=== PATIENT | female | born 1980 | race Caucasian/White ===

== ENCOUNTER 2016-05-18 14:08 | Inpatient (IN) | payer OTHER ==
[2016-05-26] MEDS ORDERED: IV START KIT ONE (07:34)
[2016-05-26] MEDS ORDERED: LIDOCAINE Viscous 2% 15 ML UDCUP ONE (07:35)
[2016-05-26] MEDS ORDERED: LACTATED RINGERS 1,000 ML ONE (07:35)
[2016-05-26] MEDS ORDERED: PUMP TUBING ONE (07:35)
[2016-05-26] MEDS ORDERED: MINERAL OIL 25 ML BOT ONE (07:35)
[2016-05-26] MEDS ORDERED: LIDOCAINE 1% (PRES FREE) 30 ML VIAL ONE (07:35)
[2016-05-26] MEDS ORDERED: OXYTOCIN 10 UNITS/ML VIAL ONE (07:35)
[2016-05-26] MEDS ORDERED: OXYTOCIN IN LR 500 ML IV ONE ×2 (07:36→08:48)
[2016-05-26] MEDS ORDERED: SODIUM CHLORIDE 0.9% FLUSH 10 ML ONE (08:00)
[2016-05-26] MEDS ORDERED: MISOPROSTOL 25 MCG TABLET VG ONE (08:02)
[2016-05-26] MEDS ORDERED: LACTATED RINGERS 1,000 ML IV PRN (08:48)
--- NOTE | 2016-05-26 09:12 | PCMAN ---
OB Admission Note - History : 7 Term: 5 : 0 Abortions (S&E): 1 Livin EDC:: 05/18/16 Gestational Age (weeks): 41 Days (#/7): 1 Admit Cervical Dilation:: 2 Admit Cervical Effacement (%):: 50 (-4 station) Admit Presentaton:: vertex, confirmed by US Membrane Status: Intact Contractions: Yes Contraction Frequency:: q 4-5, very mild Heart Rate:: 135 (moderate variability, no decels, pos accels) Status:: Cat 1 EFW:: 9.25lbs Summary of Course:: HPI: Fabi is a 35 yo G7pP5 at 41w1d who presents for elective IOL. RIO yesterday 22.5cm. Plan made yesterday for IOL as Fabi is concerned that this is her largest baby and she has never gone past 41 weeks before. Her largest infant weighed 9lbs 4oz at . No history of shoulder dystocia. Course: This is an unplanned, welcome with her partner Arturo. She initiated care with the midwives at 9 weeks for a total of 15 visits. REANNA of 05/18/16 confirmed by 10 week US. Pre- weight 217, pre-preg BMI 33. TWG this 43 lbs. This was an uncomplicated . Patient will be over 35 at time of delivery. Fabi and Arturo declined genetic testing. She plans to breastfeed. 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 No Hx of shoulder dystocia or PPH. Lat Pap 10/20/15 WNL, HPV neg, no Hx abnormals Med Hx: Hypothyroidism, currently taking 150mcg levothyroxine daily, TSH levels WNL all trimesters Hx depression after third delivery Hx UTIs in , none this Hx anemia in , none documented this Surg Hx: No surgeries Bad experience with first epidural, has had epidurals since without complication Genetic Hx: Patient, 2 sisters and one daughter have hip dysplasia AMA Current Meds: 150mcg levothyroxine daily PNV Allergies: Latex, eggs, sulfa drugs Social Hx: Lives with Arturo and five children. Declined WIC at onset, occasionally utilized food stamps depending on 's work schedule. - Labs Blood Type: O (+) positive Hct/Hgb:: 13.5/40.5 Rubella Status: Immune GBS Status: Positive Abnormal Labs: None Other Labs:: Last Pap 10/20/15 WNL, HPV negative TSH WNL all trimesters - Review of Systems Complete ROS is negative except for mild abdominal cramping described as contractions. - Physical Exam Psych/Mental Status: Mood/Affect Appropriate, Judgment/Insight Intact Neurological: Grossly Intact, Alert, Oriented x 4 HEENT: Atraumatic Lungs: Clear to Auscultation Bilaterally Cardiovascular: Regular Rate and Rhythm, Normal S1, Normal S2 Abdomen: Other (EFW 9.25lbs, Leopolds ROT) Genitourinary: Normal Female Genitalia, Other Rectal Exam: Deferred Extremities: Full ROM Skin: Normal Color - Problems (1) Advanced maternal age in multigravida Qualifiers: Trimester: third trimester Qualifier Code: (O09.523) Supervision of elderly multigravida, third trimester Status: Acute Code: O09.529 (2) Elective induction of labor planned Status: Acute Code: [id number] Assessment/Plan: A: 35 yo at 41w1d elective IOL, not in labor EFW 9.25lbs, no GDM Membranes Intact GBS pos Hypothyroid Fetus Cat 1 Obesity Brady Score 3 P: Discussed IOL options with patient. Has a Hx of using miso and Pit for her inductions with success. Given Brady Score of 3 will initiate cervical ripening with 25mcg miso and proceed to Pitocin when indicated. IV access and CBC Initiate PCN prophylaxis with onset of active labor or ROM CEFM May have regular diet one hour after administration of miso if not in active labor. Continue with daily levothyroxine Anticipate active labor and progression to (3) Hypothyroid Status: Chronic Code: E03.9
[2016-05-26 09:36] VITALS: BMI 38.0
[2016-05-26 10:00] LABS: HEMATOCRIT 37.1 % (37.0-47.0); HEMOGLOBIN 12.3 gm/l (12.0-16.0); MEAN CELL VOLUME 91.6 fl (81.0-99.0); MEAN CORPUSCULAR HEMOGLOBIN 30.4 pg (27.0-31.0); MEAN CORPUSCULAR HGB CONC 33.2 g/dl (33.0-37.0); RED CELL DISTRIBUTION WIDTH 12.6 % (11.5-14.5)
[2016-05-26] MEDS ORDERED: MISOPROSTOL 25 MCG TABLET SL ONE ×2 (13:58→22:00)
--- NOTE | 2016-05-26 14:11 | PDOC36 ---
Provider Note Subject: Labor Progress Note Note: S: Fabi feels that contractions increase in frequency and intensity when she is upright and walking and slow down when she lays down. She must pay more attention to them now than before, but can stil talk through them. O: VS BP 130/59 T 98.6F P 91 SVE 2/50%/-4/softer/posterior BSL 135 moderate variability, accels present, no decels Ctx q 2-3 mins when walking, q 4-6 when reclining, lasting 60-80 sec, mild to palpation Intact membranes A: 35 yo at 41w1d elective IOL, not in labor EFW 9.25lbs, no GDM Membranes Intact GBS pos Hypothyroid Fetus Cat 1 Obesity Brady Score 4 P: Discussed continuing IOL with patient and that progress like this is very common. Enouraged optimal positioning with side-lying release x10 mins per side. SL 50mcg miso Initiate PCN prophylaxis with onset of active labor or ROM CEFM Walking, ball, position changes to facilitate labor progression. Patient would like epidural for pain management when active labor established. Anticipate active labor and progression to
[2016-05-26] MEDS ORDERED: LEVOTHYROXINE SODIUM 150 MCG TABLET PO SCH (16:00)
--- NOTE | 2016-05-26 16:39 | PDOC36 ---
Provider Note Subject: Labor Progress Note Note: S: Fabi is feeling her contractions more intensely. She says that if she were at home, she's be planning to come to the hospital with contractions like this. O: VS BP 130/59 P91 R 16 T 98.7F SVE deferred s/p miso x2 doses, last dose 50mcg at 1410 BSL 130 pos accels, neg decels, moderate variability Movement frequently ausculated with EFM and visualized on maternal abdomen, making fetus reassurringly difficult to trace ctx q 2-4 mins, lasting 60-90 sec with breaks of 40-130 sec, palpating mild to moderate in strength A: 35 yo at 41w1d elective IOL, latent labor progressing toward active EFW 9.25lbs, no GDM Membranes Intact GBS pos Hypothyroid Fetus Cat 1 Obesity Coping well P: Discussed that she is having a good looking labor pattern. Initiate PCN prophylaxis with onset of active labor or ROM CEFM Pt to walk, change positions, use ball for labor management. Will request epidural when no longer able to cope. Anticipate active labor and progression to Deferring SVE until clinically indicated or 4 hours after last dose of miso.
--- NOTE | 2016-05-26 19:36 | PDOC36 ---
Provider Note Subject: labor progress note Note: S: Fabi is sitting on the ball and feeling her contractions more intensely, though ball sitting is very helpful. She would like to move induction along. Still considering epidural. O: VS BP 145/79 P97 T 35.7 SVE: 3/50/-3, mid-position, soft, Bishops 6 s/p miso x2 doses, last dose 50mcg at 1410 BSL 135 pos accels, neg decels, moderate variability *tracing continues to be intermittent due to frequent movement that is audible by cEFM and visable on maternal abdomen ctx q 2-3 mins, lasting 60-90 sec, palpating mild to moderate in strength A: 35 yo at 41w1d elective IOL, latent labor EFW 9.25lbs, no GDM Membranes Intact GBS pos Hypothyroid Fetus Cat 1 Obesity Coping well P: Reviewed cervical change and progress made, limitations of monitoring to movement, cervical ripening options for repeat miso SL vs low dose pitocin. Decided to repeat miso SL at this time. Will repeat 50mcg SL. Initiate PCN prophylaxis with onset of active labor or ROM CEFM Pt to walk, change positions, use ball for labor management as able with cEFM. Will request epidural when no longer able to cope or with AROM/SROM bc she anticipates increase in labor pain at that time. Anticipate active labor and progression to .
[2016-05-26] MEDS ORDERED: OXYTOCIN IN LR 500 ML IV PRN (23:14)
--- NOTE | 2016-05-26 23:47 | PDOC36 ---
Provider Note Subject: labor progress note Note: S: Fabi has been up moving around. For most of the last 1.5hrs her ctx were increasingly painful and maintained at q 1-3min. Due to painful ctx pattern, miso was held. Since active cervical ripening was no longer being conducted and previous FHT Cat. I, patient was appropriate for IA. In the 20min prior to evaluation, contractions spaced and became less painful. O: VS BP 141/92, T36.0, R:18, P:100 SVE: 3/50/-3, mid-position, soft, Bishops 6, s/p miso x2 doses, last dose 50mcg at 1410 cEFM: 120 pos accels, neg decels, moderate variability *tracing continues to be intermittent due to frequent movement that is audible by cEFM and visable on maternal abdomen TOCO: ctx q 3-6 mins, lasting 60-90 sec, palpating mild to moderate in strength A: 35 yo at 41w1d elective IOL, latent labor EFW 9.25lbs, no GDM Membranes Intact GBS pos Hypothyroid Fetus Cat 1 Obesity Coping well P: Discussed lack of cervical change. Recommended starting pitocin, with a slow /low dose protocol for continued cervical ripening. Initiate PCN prophylaxis with onset of active labor or ROM. Elevated BP noted. Likely due to recent position change to standing position and contractions. Will continue to monitor and will consider PET labs as needed. CEFM Pt to walk, change positions, use ball for labor management as able with cEFM. Will request epidural when no longer able to cope or with AROM/SROM bc she anticipates increase in labor pain at that time. Anticipate active labor and progression to .
[2016-05-27] MEDS ORDERED: PUMP TUBING ONE (03:41)
[2016-05-27] MEDS: LACTATED RINGERS 1,000 ML IV SCH ×2 (03:48→08:13)
[2016-05-27] MEDS ORDERED: LEVOTHYROXINE SODIUM 150 MCG TABLET PO SCH (07:30)
[2016-05-27] MEDS ORDERED: FENTANYL/ROPIVACAINE EPIDURAL 250 ML EP ONE (07:30)
[2016-05-27] MEDS ORDERED: EPIDURAL PUMP SET ONE (07:30)
[2016-05-27] MEDS ORDERED: LEVOTHYROXINE SODIUM 150 MCG TABLET PO ONE (07:58)
[2016-05-27] MEDS ORDERED: LIDOCAINE 2% (PRES FREE) 5 ML VIAL ONE (08:48)
[2016-05-27] MEDS ORDERED: FENTANYL 100 MCG/2 ML VIAL ONE (08:48)
[2016-05-27] MEDS ORDERED: FENTANYL/ROPIVACAINE EPIDURAL 250 ML EP SCH (09:00)
--- NOTE | 2016-05-27 09:32 | PDOC36 ---
Provider Note Subject: labor progress note Note: S: Fabi has rested. Pitocin delayed due to CNM tied up in OR and FHT Cat. I and II for change in baseline 115. MOderate variability and accelerations maintained throughout. Overall coping well, but starting to feel fatigued. O: VS BP 137/75 SVE: 350/-3, head feels more applied to cervix and is more difficult to float in pelvis than previous exam. s/p miso x2 doses (last dose 50mcg at 1410) cEFM: 115 pos accels, occasional variable decelerations with quick return to baseline with >50% ctx, moderate variability, occasional periods of minimal variability TOCO: ctx q 3-8 mins, periods of coupling, lasting 60-90 sec, palpating mild to moderate in strength A: 35 yo at 41w1d elective IOL, latent labor EFW 9.25lbs, no GDM Membranes Intact GBS pos Hypothyroid Fetus Cat I and II P: With appropriate staffing, will initiate pitocin IOL. Will re-check and reconsider AROM at next exam in 4-6hrs. Continue with plan for cEFM, initiating PCN prophylaxis with active labor or ROM , and maternal position changes. Anticipate active labor and progression to .
--- NOTE | 2016-05-27 09:52 | PDOC36 ---
Provider Note Subject: labor progress note Note: S: Fabi is laboring in the tub, moaning with contractions. O: VS BP 137/75 SVE: 4/50/-3, head feels more applied to cervix but still high s/p miso x2 doses (last dose 50mcg at 1410), Pitocin @ 2mu cEFM: baseline 115, moderate variability, accels present, decels absent TOCO: ctx q 3-4 mins, periods of coupling, lasting 60-90 sec, palpating mild to moderate in strength A: 35 yo at 41w2d elective IOL, latent labor EFW 9.25lbs, no GDM Membranes Intact GBS pos Hypothyroid Fetus Cat I P: Order epidural, continue with pitocin induction, evaluate VE after epidural Continue with plan for cEFM, initiating PCN prophylaxis with active labor or ROM , and maternal position changes. Anticipate active labor and progression to .
[2016-05-27] MEDS ORDERED: LACTATED RINGERS 1,000 ML IV SCH ×2 (09:59→10:30)
[2016-05-27] MEDS ORDERED: ONDANSETRON 4 MG/2ML 2 ML VIAL IV PRN (09:59)
[2016-05-27] MEDS ORDERED: NALBUPHINE HCL 20 MG/ML AMP IV PRN (09:59)
[2016-05-27] MEDS ORDERED: LACTATED RINGERS 500 ML IV PRN (09:59)
[2016-05-27] MEDS ORDERED: SODIUM CHLORIDE 0.9% 500 ML IV PRN (09:59)
[2016-05-27] MEDS ORDERED: METOCLOPRAMIDE HCL 5 MG/ML 2ML VIAL IV PRN (09:59)
[2016-05-27] MEDS ORDERED: NALOXONE HCL 0.4 MG/ML VIAL IV PRN (09:59)
[2016-05-27] MEDS ORDERED: EPHEDRINE SULFATE 50 MG/ML 1ML VIAL IV PRN (09:59)
[2016-05-27] MEDS ORDERED: DIPHENHYDRAMINE HCL 50 MG/1 ML VIAL IV PRN (09:59)
[2016-05-27] MEDS ORDERED: NS 0.9% (MINI-BAG PLUS) 100 ML IV ONE (10:38)
[2016-05-27] MEDS ORDERED: PENICILLIN G POTASSIUM 5 MMU VIAL ONE (10:38)
[2016-05-27] MEDS ORDERED: PENICILLIN G POTASSIUM 5 MMU in NS 0.9% (MINI-BAG PLUS) 100 ML IV ONE (10:45)
--- NOTE | 2016-05-27 13:25 | PDOC36 ---
Provider Note Note: S: Called to the room urgently due to significant pressure and urge to push. Comfortable with epidural. O: SVE: /-2, BBOW, active fetus, initially applied to cervix but ballotable with exam. Pitocin @ 2mu cEFM: baseline 115, moderate variability, accels present, decels absent TOCO: ctx q 3-5 mins, periods of coupling, lasting 60-110 sec, moderate A: 35 yo at 41w2d Active EFW 9.25lbs, no GDM Membranes Intact, GBS pos, PCN x 1 (2.5hrs ago) FHT Cat I P: Given baby's station, ballotable, and large amount of fluid, I do not feel comfortable with AROM but do believe this would assist with labor progress. Consulted Dr. Zarate for evaluation and AROM if he feels comfortable given station. Plan made for eval/AROM if possible in 1-1.5hrs when closer to adequate GBS prophylaxis. Anticipate .
[2016-05-27] MEDS ORDERED: PENICILLIN G 3 MIL UNIT PREMIX 50 ML IV ONE (14:23)
[2016-05-27] MEDS ORDERED: PENICILLIN G 3 MIL UNIT PREMIX 3 MMU in Premix (D5W) 50 ml 1 EACH IV SCH (14:45)
--- NOTE | 2016-05-27 14:58 | PDOC36 ---
Provider Note Subject: labor progress note Note: S: Still comfortable with epidural O: SVE: 8/100/-2, BBOW, Pitocin @ 2mu cEFM: baseline 115, moderate variability, accels present, decels absent TOCO: ctx q 3-5 mins, periods of coupling, lasting 60-110 sec, moderate A: 35 yo at 41w2d Active EFW 9.25lbs, no GDM Membranes AROM, GBS pos, PCN x 2 FHT Cat I P: With exam, baby head was well applied, AROM without complication. Anticipate .
[2016-05-27] MEDS ORDERED: MISOPROSTOL 200 MCG TABLET ONE (16:40)
--- NOTE | 2016-05-27 17:34 | PCMDEL ---
Delivery Note - Labor 1st stage (hr/min):: 7h15m 2nd stage (hr/min):: 0h18m 3rd stage (hr/min):: 8m Total (hr/min):: 7h41m Pushed (hr/min):: 0h18m - Delivery Delivery (Date): 05/27/16 Delivery (Time): 16:33 Gender: Male Presentation: Cephalic Position: OA Umbilical Cord: 3 Vessel Delayed Cord Clamping:: > 3 min 1 Minute Total: 9 5 Minute Total: 9 Placenta:: Spontaneous, intact, yasmany, 3vc EBL:: 400ml Perineum:: 1st degree perineal laceration repaired Suture:: 3-[address] Anesthesia/Meds:: epidural Length ROM:: 1h48m Comments:: Fabi made steady progress with oxytocin induction of labor. At 6cm she requested and received epidural anesthesia. At 8cms she requested AROM for augmentation, which was completed for clear fluid. Throughout labor, FHT was Cat. I or II with baseline in 115s and occasional variables with good return, and consistent moderate variability. At complete dilation, she pushed effectively to achieve of vigorous male with copious amounts of amniotic fluid (measured in drape 1500ml, minimal blood loss). Slow delivery of the head (OA to ANNITA) was followed by quick easy delivery of both shoulders and body. Immediately placed skin to skin for bonding and drying. Apgars 9/9. Delayed cord clamping until cessation of pulsing, cut by FOB. AMTSL with IV pitocin. Brisk bleeding followed by spontaneous delivery of intact placenta, yasmany, 3vc. Fundus firm midline u/-1. EBL 350ml. Due to risk factors (now , near poly) and volume of current blood loss, lower uterine segment swept for small clots and minimal bleeding. Hemostasis achieved total EBL 400ml. Upon inspection 1st degree perineal laceration noted and repaired under epidural anesthesia to approximation. Mom and baby stable, baby to breast in <30min.
[2016-05-27] MEDS ORDERED: ACETAMINOPHEN 325 MG TABLET PO PRN (18:18)
[2016-05-27] MEDS ORDERED: LANOLIN 50 APPLIC/7G TUBE TP PRN (18:18)
[2016-05-27] MEDS ORDERED: DOCUSATE SODIUM 100 MG CAPSULE PO PRN (18:18)
[2016-05-27] MEDS ORDERED: BENZOCAINE/MENTHOL 60 APPLIC/BOT TP PRN (18:18)
[2016-05-27] MEDS: IBUPROFEN 800 MG TABLET PO SCH (18:41)
[2016-05-28] MEDS: HYDROCODONE/ACETAMINOPHEN 5/325MG TABLET PO PRN ×2 (00:01→07:04)
[2016-05-28] MEDS: IBUPROFEN 800 MG TABLET PO SCH (01:38)
[2016-05-28 06:48] LABS: HEMATOCRIT 28.9 % (37.0-47.0); HEMOGLOBIN 9.7 gm/l (12.0-16.0)
[2016-05-28] MEDS ORDERED: LEVOTHYROXINE SODIUM 150 MCG TABLET PO SCH (07:30)
[2016-05-28] MEDS ORDERED: LACTATED RINGERS 1,000 ML ONE (09:07)
[2016-05-28] MEDS ORDERED: EPINEPHRINE 1 MG/ML 1ML AMP ONE (10:07)
[2016-05-28] MEDS ORDERED: LIDOCAINE 2% (PRES FREE) 5 ML VIAL ONE (10:07)
--- NOTE | 2016-05-28 10:12 | PDOC36 ---
Provider Note Subject: Pre-op Note Note: Pt and her Arturo are very definite that they have completed their family , unless they adopt. She wishes to proceed with BTL. Understands permanency as well as possibility of failure/ectopic. Risks/complications of surgery discussed. Consent signed. Exam show a well contracted deep uterus Subumbilical incision discussed Imp: Undesired fertility Plan: BTL
[2016-05-28] MEDS ORDERED: FENTANYL 100 MCG/2 ML VIAL ONE (10:13)
[2016-05-28] MEDS ORDERED: MIDAZOLAM HCL 5 MG/5 ML VIAL ONE ×2 (10:24→10:40)
[2016-05-28] MEDS ORDERED: MORPHINE SULFATE 10 MG/ML SYRINGE ONE ×2 (10:48→11:28)
[2016-05-28] MEDS ORDERED: BUPIVACAINE 0.5% (PRES FREE) 30 ML VIAL ONE (11:12)
[2016-05-28] MEDS ORDERED: METOCLOPRAMIDE HCL 5 MG/ML 2ML VIAL ONE (11:12)
[2016-05-28] MEDS ORDERED: ROPIVACAINE 0.5% 30 ML VIAL ONE (11:12)
[2016-05-28] MEDS ORDERED: PROPOFOL 40 ML IV ONE (11:12)
[2016-05-28] MEDS ORDERED: FAMOTIDINE 10 MG/ML 2ML VIAL ONE (11:12)
[2016-05-28] MEDS ORDERED: LACTATED RINGERS 1,000 ML IV SCH (11:15)
--- NOTE | 2016-05-28 11:58 | PCMBPN ---
Brief Post Op Note: Date of Procedure: 05/28/16 Start Time: 1051 Preoperative Diagnosis: 1. Undesired fertility Postoperative Diagnosis: 1. Same Procedure: Ppartum bilateral tubal ligation Surgeon: Shilpa Shepherd Assist:Mario Anesthesia: Valeria Patrick CRNA Findings: Thick adipose layer, edema, omentum and bowel overlying the retroverted uterus which was deep in pelvis. Condition: Good Complications: none IV Fluids: 2200 mLs of LR Urine Output: 0 mLs Estimated Blood Loss: 25 mLs Tourniquet Time: N/A Specimens: bilateral segments of tubes Implants: N/A Drains: N/A
[2016-05-28] MEDS ORDERED: MORPHINE SULFATE 4 MG/ML SYRINGE ONE (12:07)
[2016-05-28] MEDS ORDERED: MORPHINE SULFATE 4 MG/ML SYRINGE IV PRN (12:15)
[2016-05-28] MEDS ORDERED: LANOLIN 50 APPLIC/7G TUBE TP PRN (12:29)
[2016-05-28] MEDS ORDERED: DIPHTH,PERTUSS(ACELL),TET VAC 0.5 ML VIAL IM V ONE (12:29)
[2016-05-28] MEDS ORDERED: BENZOCAINE/MENTHOL 60 APPLIC/BOT TP PRN (12:29)
[2016-05-28] MEDS ORDERED: MAGNESIUM HYDROXIDE 30 ML UDCUP PO PRN (12:29)
[2016-05-28] MEDS ORDERED: OXYCODONE HCL 5 MG TABLET PO PRN (12:29)
[2016-05-28] MEDS ORDERED: ACETAMINOPHEN 325 MG TABLET PO PRN (12:29)
[2016-05-28] MEDS ORDERED: MEASLES,MUMPS&RUBELLA VACCINE 0.5 ML VIAL SUB-Q V ONE (12:29)
[2016-05-28] MEDS ORDERED: SENNOSIDES 8.6 MG TABLET PO PRN (12:29)
[2016-05-28] MEDS ORDERED: DOCUSATE SODIUM 100 MG CAPSULE PO PRN (12:29)
[2016-05-28] MEDS ORDERED: LEVOTHYROXINE SODIUM 150 MCG TABLET PO ONE (13:30)
[2016-05-28] MEDS: OXYCODONE/ACETAMINOPHEN 5/325 MG TABLET PO PRN ×3 (13:35→21:34)
[2016-05-28] MEDS: IBUPROFEN 800 MG TABLET PO PRN ×2 (16:22→23:02)
--- NOTE | 2016-05-28 21:06 | PDOC36 ---
Provider Note Subject: Post-op note Note: S: pt states pain is worse than she expected. With ibuprof and percocet she is doing OK. We discussed pain management and weaning off percocet after discharge. Pt hoping to go home tomorrow if baby's bili is OK. Exam: Abd sensitive. Dressing clean and dry. Imp: Stable postop BTL. Surgery reviewed with pt and her . It was a bit difficult due to body habitus, but I expect a normal recovery. Plan: Probable dc in am.
[2016-05-28] MEDS ORDERED: PROPOFOL 20 ML IV ONE (22:18)
[2016-05-29] MEDS: OXYCODONE/ACETAMINOPHEN 5/325 MG TABLET PO PRN ×3 (01:30→09:37)
[2016-05-29] MEDS: IBUPROFEN 800 MG TABLET PO PRN ×2 (05:14→11:08)
[2016-05-29 06:02] LABS: HEMATOCRIT 29.8 % (37.0-47.0); HEMOGLOBIN 9.6 gm/l (12.0-16.0); MEAN CELL VOLUME 94.3 fl (81.0-99.0); MEAN CORPUSCULAR HEMOGLOBIN 30.4 pg (27.0-31.0); MEAN CORPUSCULAR HGB CONC 32.2 g/dl (33.0-37.0); RED CELL DISTRIBUTION WIDTH 12.8 % (11.5-14.5)
[2016-05-29 08:06] VITALS: BP 124/68
--- NOTE | 2016-05-29 14:23 | OP ---
KARTHIK SOLIMAN [id number] DATE OF : 1980 DATE OF SURGERY: 05/28/2016 PREPROCEDURE DIAGNOSIS: Undesired fertility after normal vaginal . POSTPROCEDURE DIAGNOSIS: Undesired fertility after normal vaginal . PROCEDURE PERFORMED: bilateral tubal ligation. SURGEONS: Shilpa Shepherd MD [employer] SOFTWARE DEVELOPER: Mario. CANNERY WORKER: Valeria Patrick CRNA ANESTHESIA: Epidural anesthesia was used with IV sedation. ESTIMATED BLOOD LOSS: 25 mL. DESCRIPTION OF PROCEDURE: On the morning of 05/28/2016 after the usual preoperative preparations were completed in the patient's labor and delivery room, Fabi was brought to the operating room at the [facility]. She was transferred to the operating room table, and made comfortable in a supine position. She had already been given a bolus of medication through her epidural catheter from the delivery. Once this had taken effect, the abdomen was prepped and draped for a subumbilical incision. A time out was then performed verifying proper patient, procedure, position, personnel, and equipment. The patient was then tested and still had some very mild sensation under the umbilicus. This area was therefore injected with 0.5% bupivacaine, and this was allowed to take effect. She was again tested and had no reaction. A transverse incision was therefore made just below the umbilicus with a fresh knife. This was carried down to through the fairly thick adipose layer that also was quite edematous. The fascia was then incised the length of the incision. The peritoneum was identified and opened transversely. There were no intraperitoneal adhesions. Unfortunately, there was large omentum and loops of bowel below the incision. The fundus of the uterus itself was already deep in the pelvis and retroverted. The patient was therefore placed in a Trendelenburg position and a small Escobar retractor was placed through the incision. I was able to gently manipulate the fundus of the uterus upward and towards the left side. We tried several different things to provide some visualization of the coronal portion of the uterus, but this was quite difficult. Finally, with the patient rolled slightly to her left side, and with a sponge stick holding back some of the omentum, I was able to grasp the fallopian tube. We brought this upward toward the incision, and I was able to visualize the fallopian tube in its entire length. It was edematous, but otherwise completely normal. The fimbria appeared normal. The isthmic part of the tube was elected. Mesentery was opened, two Florecita clamps were placed and this segment was excised. Both cut edges of the fallopian tube were doubly tied with some 3-0 Chromic tie, and then these were also cauterized. There was no bleeding from the right side. The tube was therefore gentle placed back within the perineal cavity, and the uterus was then rotated toward the right. The patient was tilted partly towards the right and several attempts were again made to move bowel and omentum aware from the top of the uterus. Finally, I was able to visualize the adnexa enough to grasp the fallopian tube with a Whittier clamp. The right fallopian tube was also visualized in its entire length. A segment in the isthmic portion was selected and the mesentery was opened. Two Florecita clamps were placed and this was excised. Doubly ties were placed, and the lumen of the tube was cauterized. I also injected this side with just a small amount of bupivacaine. Hemostasis was verified. Patient was taken out of the Trendelenburg position. The Escobar retractor was removed. The subumbilical incision was then closed in layers as follows: Peritoneum and first fascial layer were closed with 0-Vicryl in a running suture. The thicker fascial layer was then closed with 0-Vicryl. Skin was reapproximated with some 4-0 Monocryl suture. Steri-Strips were placed followed by a bandage. The patient was then gently awoken from the anesthesia. She was then transferred to her bed and taken to the recovery room in stable condition. LEONOR/libby
--- NOTE | 2016-06-01 09:29 | SURGPATH ---
[facility] [address] [place] [id number] Patient Name: KARTHIK SOLIMAN MR#: [id number] : 1980 Gender: F Specimen #: [id number] Collected: 05/28/2016 Received: 05/31/2016 Reported: 06/01/2016 Submitting Phys: MICHELLE PRO Copy To Phys: [facility] Clinical History / Pre-Operative Diagnosis: NONE PROVIDED Specimen Source / Surgical Procedure Performed: SEGMENT OF RIGHT FALLOPIAN TUBE (WITH SUTURE), SEGMENT OF LEFT FALLOPIAN TUBE- BILATERAL TUBAL LIGATION Interpretation: FALLOPIAN TUBES, RIGHT AND LEFT, BILATERAL TUBAL LIGATION: - NORMAL FALLOPIAN TUBES SEEN IN COMPLETE CROSS SECTION Electronically Signed Out Desiree Muniz M.D. Gross Description: The specimen is received in a formalin filled container labeled with the patient's name and "right and left fallopian tube segment". Two cylindrical segments of hancock tissue are 1.0 x 0.5 cm and 1.3 x 0.5 cm. The longer segment has an attached suture and is inked black. A statement services representative cross-section of each is submitted in one cassette. Emil Nazario Microscopic Description: Both fallopian tubes are histologically unremarkable and seen in complete cross section. 1: [id number] Z30.2
--- NOTE | 2016-06-03 09:56 | PDOC39B ---
Hospital Course: ADMIT DATE: 05/26/16 DISCHARGE DATE: 05/29/16 ADMISSION DIAGNOSES: IOL for post-dates PROCEDURES: HISTORY OF PRESENT ILLNESS: 35 year old G7 T5 L5 at 41 weeks 2 days presenting for IOL for postdates. Had uncomplicated followed by an uncomplicated BTL. Pain has been well-controlled on perococet. HOSPITAL COURSE: The patient is doing well overall. By day of discharge the patient is ambulating, eating, voiding, and passing flatus without difficulty. Pain is controlled with percoset and lochia is appropriate. She is exclusively. She requests an Rx of Perocset for pain relief and for colace at home. She has good family support. - Physical Exam Vital Signs: Temp Pulse Resp BP Pulse Ox 99.0 F 85 18 124/68 96 05/29/16 07:34 05/29/16 07:34 05/29/16 07:34 05/29/16 07:34 05/28/16 12:33 General: Afebrile Psych/Mental Status: Mood/Affect Appropriate, Judgment/Insight Intact, Bonding Well Lungs: Clear to Auscultation Bilaterally Cardiovascular: Regular Rate and Rhythm Breast: Soft, Skin intact, Nipples Intact Fundus: Firm, Midline, Below Umbilicus Genitourinary: Normal Female Genitalia Lochia: Light Extremities: Full ROM Skin: Normal Color - Discharge Diagnosis (1) care and examination Status: Acute Assessment/Plan: A: 35yo Day 2 S/p BTL yesterday Lochia stable exclusively Anemic P: : encourage follow-up with [facility] PRN, lanolin PRN, on- demand feedings, [id number] Anemia: encouraged to continue taking PO iron, rest, increase hydration. Reviewed warning signs. BTL pain: seen and examined post-BTL by Jh Shepherd, who recommends #60 5-325 Percoset for pain relief. Rxs for Percoset, ibuprofen and Colace given. Encouraged pt to schedule BTL follow-up visit with Jh Shepherd in 7-10 days. Reviewed s/s of infection, when to call. Education: handout given and reviewed. Warning signs discussed: mood disorder vs baby blues, bleeding, infection, DVT/PT Follow-up: 06/10/16 at 1:40pm in [place] for 2-week visit, or PRN. - Discharge Plan Condition: Stable Instruction Forms: Vaginal Discharge Instructions Additional Instructions: Congratulations! Please call the clinic to schedule a follow-up appointment with Dr. Shepherd for later this week. You have a follow-up visit with the midwives scheduled for 06/10/16 at 1:40pm in [place]. If you have any questions or concerns, or need to reschedule, please call the clinic at [phone] ([place]) or [phone] ([place]). Prescriptions: Docusate Sodium [COLACE 100 MG CAPSULE (SHF)] 100 mg PO BID PRN #30 cap PRN Reason: Constipation Ibuprofen [Motrin] 1 tab PO Q6H PRN #60 tablet PRN Reason: Pain Oxycodone HCl/Acetaminophen [PERCOCET 5/325 MG TABLET (SHF)] 1 tab PO Q4-6H PRN #60 tab PRN Reason: Pain
== END 2016-05-29 12:40 | disposition home or self-care (01) | DRG 767 ==
LOC: EDSTATUS 14:22 → FBC 05-26 07:00
PROVIDERS: ADMIT Advanced Practice Midwife; ATTEND Advanced Practice Midwife
PROC: 3E033VJ Introduction of Other Hormone into Peripheral Vein, Percutaneous Approach (ICD-10-PCS; 2016-05-26)
PROC: 10E0XZZ Delivery of Products of Conception, External Approach (ICD-10-PCS; principal; 2016-05-27)
PROC: 10907ZC Drainage of Amniotic Fluid, Therapeutic from Products of Conception, Via Natural or Artificial Opening (ICD-10-PCS; 2016-05-27)
PROC: 0UB70ZZ Excision of Bilateral Fallopian Tubes, Open Approach (ICD-10-PCS; 2016-05-28)
PROC: 0HQ9XZZ Repair Perineum Skin, External Approach (ICD-10-PCS; 2016-05-28)
DX: O48.0 Post-term pregnancy (principal); O99.284 Endocrine, nutritional and metabolic diseases complicating childbirth; E03.9 Hypothyroidism, unspecified; O99.824 Streptococcus B carrier state complicating childbirth; O99.214 Obesity complicating childbirth; E66.9 Obesity, unspecified; Z3A.41 41 weeks gestation of pregnancy; Z37.0 Single live birth; O09.523 Supervision of elderly multigravida, third trimester; O70.0 First degree perineal laceration during delivery; O09.43 Supervision of pregnancy with grand multiparity, third trimester; Z30.2 Encounter for sterilization